=== PATIENT | female | born 1970 | race Caucasian/White ===

== ENCOUNTER 2025-04-05 06:22 | Emergency (ER) | payer OTHER ==
[~2025-04-05] VITALS: Ht 154.9 cm; Wt 73.6 kg
[2025-04-05] MEDS: ACETAMINOPHEN 325 MG TAB PO ONE (07:27)
[2025-04-05] MEDS: KETOROLAC 60 MG/2 ML VIAL IM ONE (07:28)
[2025-04-05 08:15] VITALS: BP 167/84; TEMP 98.3; O2SAT 98
[2025-04-05] MEDS ORDERED: CYCL-707 PO (08:21)
[2025-04-05] MEDS ORDERED: NAPR-837 PO (08:21)
== END 2025-04-05 08:29 | disposition home or self-care (01) ==
LOC: M ED 06:22
DX: M62.830 Muscle spasm of back (principal); Z79.899 Other long term (current) drug therapy
CPT/HCPCS: 96372; 99284; J1885